=== PATIENT | female | born 1970 | race Asian ===

== ENCOUNTER 2021-09-14 07:30 | Outpatient (RCR) | payer OTHER, SELFPAY | END 2022-05-13 15:58 | disposition home or self-care (01) | PROVIDERS: PCP Obstetrics & Gynecology; Visit Provider Orthopaedic Surgery Sports Medicine | DX: M25.532 Pain in left wrist (principal); Z51.89 Encounter for other specified aftercare | CPT/HCPCS: 97110; 97140; X5282 ==

== ENCOUNTER 2021-10-29 06:23 | Outpatient (CLI) | payer OTHER, SELFPAY ==
[2021-10-29 06:47] VITALS: BP 123/69; PULSE 78; RESP 16; TEMP 36.7; O2SAT 100; BMI 21.9
[2021-10-29 07:39] VITALS: BP 99/62; PULSE 73; RESP 16; O2SAT 100
[2021-10-29 07:50] VITALS: BP 97/65; PULSE 74; RESP 16; O2SAT 100
--- NOTE | 2021-10-29 07:56 | W.ANESCHARGE ---
Anesthesia Charges Start Date/Time Anesthesia Start Date: 10/29/21 Anesthesia Start Time: 07:23 Stop Date/Time Anesthesia Stop Date: 10/29/21 Anesthesia Stop Time: 07:45 Summary Emergency: No
[2021-10-29 07:59] LABS: Basophils Percent Auto 0.3 % (0.0-3.0); Eosinophils Percent Auto 2.8 % (0.0-7.0); Hematocrit 34.2 % (33.0-51.0); Hemoglobin* 10.6 gm/dL (12.0-16.0); Immature Granulocytes Abs Auto 0.01 K/uL (0.00-0.30); Lymphocytes Percent Auto 41.1 % (20-44); Mean Corpuscular HGB Conc 31 gm/dL (32-36); Mean Corpuscular Hemoglobin 23 pg (26-34); Mean Corpuscular Volume 75 fL (80-100); Monocytes Percent Auto 7.8 % (0.0-11.0); Neutrophils Percent Auto 47.7 % (42.0-72.0); Platelet Count* 192 K/uL (140-440); RDW Coefficient of Variation % 14.4 % (11.5-15.5); Red Blood Count 4.56 m/uL (4.00-5.20); Reticulocyte Hemoglobin Equivi 22.9 pg (29.0-35.0); Reticulocyte Percent 0.9 % (0.5-2.0); Reticulocytes Absolute 0.04 # (0.03-0.08); White Blood Count* 3.19 K/uL (4.50-11.00)
[2021-10-29 08:00] VITALS: BP 100/66; PULSE 99; RESP 16; O2SAT 100
--- NOTE | 2021-10-29 08:09 | W.ANESCHARGE ---
Anesthesia Charges Start Date/Time Anesthesia Start Date: 10/29/21 Anesthesia Start Time: 07:23 Stop Date/Time Anesthesia Stop Date: 10/29/21 Anesthesia Stop Time: 07:45 Summary Emergency: No
[2021-10-29 08:11] LABS: Slide Review Reflex No
[2021-10-29 08:15] VITALS: BP 105/71; PULSE 77; RESP 16; O2SAT 100
== END 2021-10-29 08:20 | disposition home or self-care (01) ==
PROVIDERS: PCP Family Medicine; Visit Provider Internal Medicine Hematology & Oncology
DX: D70.9 Neutropenia, unspecified (principal); D64.9 Anemia, unspecified
CPT/HCPCS: 01112; 36415; 38222; 85025; 85045; 88184; 88185; 88237; 88264; 88305; 88311; 88313; 88341; 88342; 88360; J1644; J2001; J2704

== ENCOUNTER 2021-11-17 14:22 | Outpatient (CLI) | payer OTHER, SELFPAY ==
--- NOTE | 2021-11-17 15:00 | CRLHL7_ITS ---
For Patients: As a result of the Century Cures Act, medical imaging exams and procedure reports are released immediately into your electronic medical record. You may view this report before your referring provider. If you have questions, please contact your health care provider. INDICATION: Cytopenia COMPARISON: none TECHNIQUE: Real time nath scale imaging and color Doppler analysis was performed of spleen. FINDINGS: The spleen is normal in size and morphology with normal vascularity and measures 6.7 x 2.5 x 2.0 cm. No surrounding fluid. IMPRESSION: No splenomegaly. Dictated by Alex Vuong MD @ 11/18/2021 10:02:14 AM (Electronically Signed)
== END 2021-11-17 14:23 | disposition home or self-care (01) ==
LOC: US 14:24
PROVIDERS: PCP Obstetrics & Gynecology; Visit Provider Internal Medicine Hematology & Oncology
DX: D75.9 Disease of blood and blood-forming organs, unspecified (principal)
CPT/HCPCS: 76705

== ENCOUNTER 2021-12-07 16:10 | Outpatient (CLI) | payer OTHER, SELFPAY ==
--- NOTE | 2021-12-07 16:45 | CRLHL7_ITS ---
For Patients: As a result of the Cures Act, medical imaging exams and procedure reports are released immediately into your electronic medical record. You may view this report before your referring provider. If you have questions, please contact your health care provider. BILATERAL SCREENING MAMMOGRAM WITH COMPUTER-AIDED DETECTION AND TOMOSYNTHESIS TECHNIQUE: CC and MLO views were obtained. These mammographic images have been obtained using full-field digital technique. These mammographic images were interpreted with the benefit of computer-aided detection. Breast Tomosynthesis was used in this interpretation. COMPARISON FILM: 11/15/19, 12/01/16, 06/23/14. FINDINGS: The breasts are heterogeneously dense, which may obscure small masses IMPRESSION: There is no radiographic evidence for malignancy. ASSESSMENT: BI-RADS Category 1: Negative RECOMMENDATION: Routine screening mammogram in 1 year. A lay language report of this examination will be provided to the patient. Alex Vuong M.D. Diagnostic Radiologist [email or web address] BRIANA/tyrese / be/Dictated by: Alex Vuong MD @ 12/08/2021 10:57:00 AM (Electronically Signed)
== END 2021-12-07 16:11 | disposition home or self-care (01) ==
LOC: MAMMO 16:10
PROVIDERS: PCP Obstetrics & Gynecology; Visit Provider Internal Medicine Nephrology
DX: Z12.31 Encounter for screening mammogram for malignant neoplasm of breast (principal); R92.2 Inconclusive mammogram
CPT/HCPCS: 77063; 77067

== ENCOUNTER 2021-12-09 12:05 | Outpatient (CLI) | payer OTHER, SELFPAY | END 2021-12-09 12:06 | disposition home or self-care (01) | LOC: OP CLINIC 12:06 | PROVIDERS: PCP Obstetrics & Gynecology; Visit Provider Surgery | DX: Z12.11 Encounter for screening for malignant neoplasm of colon (principal); K63.5 Polyp of colon | CPT/HCPCS: 45385; 88305; 99153; J1200; J2250; J3010 ==

== ENCOUNTER 2022-02-16 08:15 | Outpatient (RCR) | payer OTHER, SELFPAY ==
[2021-10-08 15:20] LABS: Iron* 90 ug/dL (37-170)
[2021-10-08 15:29] LABS: Percent Iron Saturation 23 % (20-50); Total Iron Binding Capacity 385 ug/dL (265-497)
[2021-10-11 18:56] LABS: Folate, Serum > 22.3 ng/mL (>=5.9)
[2021-11-16 09:43] LABS: Albumin* 4.7 g/dL (3.3-5.0); Chloride* 101 mmol/L (96-114)
[2021-11-16 09:44] LABS: Potassium* 4.2 mmol/L (3.6-5.1); Sodium* 138 mmol/L (135-149)
[2021-11-16 09:46] LABS: Alanine Aminotransferase* 19 U/L (4-35); Alkaline Phosphatase* 58 U/L (40-150); Aspartate Amino Transferase* 24 U/L (12-35); Bilirubin Total* 0.6 mg/dL (0.1-1.5); Blood Urea Nitrogen* 23 mg/dL (7-30); Carbon Dioxide* 29 mmol/L (20-32); Creatinine* 0.8 mg/dL (0.5-1.5); Estimated Glomerular Filt Rate 90 ml/min; Glucose* 85 mg/dL (60-115); Total Protein* 7.8 g/dL (6.0-8.3)
[2021-11-16 09:47] LABS: Calcium* 9.3 mg/dL (8.4-10.6)
[2021-11-16 11:13] LABS: Thyroid Stimulating Hormone* 0.087 uIU/mL (0.270-4.20)
[2021-11-18 15:06] LABS: Erythropoietin 14 mU/mL (4-27)
[2021-11-19 02:36] LABS: Albumin 4.17 g/dL (3.75-5.01); Alpha 1 Globulin 0.23 g/dL (0.19-0.46); Alpha 2 Globulin 0.64 g/dL (0.48-1.05); Total Protein, Serum 7.1 g/dL (6.3-8.2)
[2021-11-19 05:08] LABS: Anti-Nuclear Ab(ANA)IgG ELISA None Detected (None Detected)
[2022-02-09 08:35] LABS: Basophils Percent Auto 0.6 % (0.0-3.0); Eosinophils Percent Auto 3.3 % (0.0-7.0); Hematocrit 37.9 % (33.0-51.0); Hemoglobin* 11.9 gm/dL (12.0-16.0); Lymphocytes Percent Auto 40.2 % (20-44); Mean Corpuscular HGB Conc 31 gm/dL (32-36); Mean Corpuscular Hemoglobin 23 pg (26-34); Mean Corpuscular Volume 75 fL (80-100); Monocytes Percent Auto 9.7 % (0.0-11.0); Neutrophils Percent Auto 46.2 % (42.0-72.0); Platelet Count* 215 K/uL (140-440); RDW Coefficient of Variation % 15.5 % (11.5-15.5); Red Blood Count 5.09 m/uL (4.00-5.20); White Blood Count* 3.61 K/uL (4.50-11.00)
[2022-02-09 08:43] LABS: Slide Review Reflex No
[2022-02-09 09:45] LABS: Ferritin* 77.3 ng/mL (11.1-264.0)
[2022-02-09 10:21] LABS: Vitamin B12* > 1000 pg/mL (243-894)
== END 2022-04-06 23:59 | disposition home or self-care (01) ==
LOC: CCIC 08:15
PROVIDERS: PCP Obstetrics & Gynecology; Referring Provider Obstetrics & Gynecology; Visit Provider Internal Medicine Hematology & Oncology
DX: D64.9 Anemia, unspecified (principal); D72.819 Decreased white blood cell count, unspecified
CPT/HCPCS: 36415; 80053; 82607; 82668; 82728; 82746; 83540; 83550; 84165; 84443; 85025; 86039; 87635; 99212; 99213; 99214

== ENCOUNTER 2022-09-02 09:30 | Outpatient (RCR) | payer OTHER, SELFPAY ==
[2022-08-31 14:11] LABS: Basophils Percent Auto 0.3 % (0.0-3.0); Eosinophils Percent Auto 5.8 % (0.0-7.0); Hematocrit 37.9 % (33.0-51.0); Hemoglobin* 11.8 gm/dL (12.0-16.0); Lymphocytes Percent Auto 41.1 % (20-44); Mean Corpuscular HGB Conc 31 gm/dL (32-36); Mean Corpuscular Hemoglobin 23 pg (26-34); Mean Corpuscular Volume 74 fL (80-100); Monocytes Percent Auto 6.9 % (0.0-11.0); Neutrophils Percent Auto 45.9 % (42.0-72.0); Platelet Count* 218 K/uL (140-440); Red Blood Count 5.12 m/uL (4.00-5.20)
[2022-08-31 14:12] LABS: Slide Review Reflex No
[2022-08-31 14:44] LABS: Iron* 72 ug/dL (37-170)
[2022-08-31 15:12] LABS: Percent Iron Saturation 20 % (20-50); Total Iron Binding Capacity 360 ug/dL (265-497)
[2022-08-31 15:47] LABS: Vitamin B12* > 1000 pg/mL (243-894)
[2022-09-02 12:55] LABS: Folate, Serum >22.3 ng/mL (>=5.9)
== END 2023-02-27 23:59 | disposition home or self-care (01) ==
LOC: CCIC 09:30
PROVIDERS: PCP Obstetrics & Gynecology; Referring Provider Obstetrics & Gynecology; Visit Provider Internal Medicine Hematology & Oncology
DX: D64.9 Anemia, unspecified (principal); D72.819 Decreased white blood cell count, unspecified; R79.89 Other specified abnormal findings of blood chemistry
CPT/HCPCS: 36415; 82607; 82728; 82746; 83540; 83550; 85025; 99212; 99213; 99214

== ENCOUNTER 2023-02-10 09:08 | Outpatient (CLI) | payer OTHER, SELFPAY | END 2023-02-10 09:09 | disposition home or self-care (01) | PROVIDERS: PCP Obstetrics & Gynecology; Visit Provider Obstetrics & Gynecology | DX: Z01.419 Encounter for gynecological examination (general) (routine) without abnormal findings (principal); E01.0 Iodine-deficiency related diffuse (endemic) goiter; Z13.6 Encounter for screening for cardiovascular disorders | CPT/HCPCS: 80061; 84443 ==

== ENCOUNTER 2023-12-22 14:14 | Outpatient (CLI) | payer OTHER, SELFPAY ==
--- NOTE | 2023-12-22 13:40 | CRLHL7_ITS ---
For Patients: As a result of the Century Cures Act, medical imaging exams and procedure reports are released immediately into your electronic medical record. You may view this report before your referring provider. If you have questions, please contact your health care provider. BILATERAL SCREENING MAMMOGRAM WITH COMPUTER-AIDED DETECTION AND TOMOSYNTHESIS TECHNIQUE: CC and MLO views were obtained. These mammographic images have been obtained using full-field digital technique. These mammographic images were interpreted with the benefit of computer-aided detection. Breast Tomosynthesis was used in this interpretation. COMPARISON FILM: 12/07/21, 11/15/19, 12/01/16. FINDINGS: The breasts are heterogeneously dense, which may obscure small masses. IMPRESSION: There is no radiographic evidence for malignancy. ASSESSMENT: BI-RADS Category 1: Negative RECOMMENDATION: Routine screening mammogram in 1 year. A lay language report of this examination will be provided to the patient. Alex Vuong M.D. Diagnostic Radiologist [email or web address] SP/Dictated by: Alex Vuong MD @ 12/25/2023 8:51:00 AM (Electronically Signed)
--- OUTSIDE RECORDS SUMMARY | 2023-12-22 14:17 | XMS_ITS | Clinical Summary ---
Author Organization [employer] [facility] Address [place], [place] [address] Care Team Providers Care Recycling Tech Name Role Phone Pcp, No Primary Care Provider Unavailabl e Allergies Active Allergy Reactions Criticality Noted Date Comments Homeopathic Products 08/14/2008 Medications Medication Sig Dispensed Refills Start Date End Date Status ZYRTEC 10 MG TABIndications:Allergic rhinitis, cause unspecified take 1 tablet (10 mg) by oral route once daily 30 1year 10/17/2006 Active MULTI-VITAMIN TAB take 1 tablet by oral route once daily with food 0 08/14/2008 Active Active Problems Problem Noted Date Diagnosed Date 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 Allergic rhinitis, cause unspecified 09/26/2006 Immunizations Name Administration Dates Next Due AMB Influenza, IIV3 (Age >=3 years)(Flu Clinic Only) 12/18/2007 HepA-HepB (Twinrix) 01/02/2003,08/01/2002,2001 Influenza, IIV3 (Age >=3 years) 11/10/2008,01/04 MMR 10/16/2003 Td (Age >=7 Years) 10/16/2003 Family History * Patient is adopted Medical History Relation Name Comments Other Other adopted Relation Name Status Comments Other Social History Tobacco Use Types Packs/Day Years Used Date Smoking Tobacco: Never Smokeless Tobacco: Never Alcohol Use Standard Drinks/Week Comments No 0 (1 standard drink = 0.6 oz pur e alcohol) Sex and Gender Information Value Date Recorded Sex Assigned at Not on file Gender Identity Not on file Sexual Orientation Not on file Obstetrics History Last Filed Vital Signs Vital Sign Reading Time Taken Comments Blood Pressure 90/60 06/28/2011 1:26 PM CDT Pulse 68 06/28/2011 1:26 PM CDT Temperature - - Respiratory Rate 18 06/28/2011 1:26 PM CDT Oxygen Saturation - - Inhaled Oxygen Concentration - - Weight 51.5 kg (113 lb 9.6 oz) 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 Height 155.6 cm (5' 1.25) 08/14/2008 11:48 AM C DT Body Mass Index 21.29 08/14/2008 11:48 AM CDT Plan of Treatment Health Maintenance Due Date Last Done Comments Tdap 10/28/1982 Depression screening for age 12+ 1983 HIV for age 15-65 10/28/1986 BMI (ht and wt on same day) for age 18+ 10/28/1989 Hepatitis C screening for age 18-79 10/28/1989 Tetanus booster 10/15/2013 10/16/2003 Colonoscopy through age 75 10/28/2016 Lipids for age 45-75 10/28/2016 Mammogram for age 45-75 10/28/2016 Zoster (shingles) series for age 50+ (1 of 2) 10/28/2021 Pap test for age 21-65 11/28/2022 0, 11/29/2019, 06/28/2013, Additional history exists COVID-19 vaccine series (2023- season) 2023 Influenza for age 50-64 2023 11/11/19 09, 12/18/2007, 01/04/2007 Pneumococcal series for age 6-64 Aged Out No longer eligible based on patient's age to complete this topic Procedures Procedure Name Priority Date/Time Associated Diagnosis Comments 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 Case: [id number] ? Authorizing Provider: ??Eileen Yates ??Collected: ? 11/29/2019 1020 ? M, MD ? Ordering Location: ? [facility] ?Received: ?12/02/2019 1725 ? First Screen: ?Keena Rojo ? Specimen: ?POST TRONIC MACHINE OPERATOR ThinPrep Vial Screening, Cervical/Vaginal ? 12/11/2019 11:54 AM [facility] INTERPRETATION/ RESULT NEGATIVE FOR INTRAEPITHELIAL LESION OR MALIGNANCY (NIL) (none) 12/11/2019 11:54 AM [facility] ENTRMA LABORAT[facility] IMEN ADEQUACY Satisfactory for evaluation Endocervical cells cannot be evaluated due to severe atrophy 12/11/2019 11:54 AM CDT [facility] ENTRAL LAB[facility]ATORY HPV REQUEST HPV and PAP 12/11/2019 11:54 AM CDT [facility] Last Pap Date 06/28/2013 12/11/2019 11:54 AM CDT [facility]-C ENTRAL LABORATORY Last Pap Result NIL 0 11:54 AM T [facility] Menstrual Status Postmenopausal 12/11/2019 11:54 AM CDT [facility] Additional Information 12/11/2019 11:54 AM CDT [facility] Comment: Interpreted at [facility] - [address] [place] [address], [place] [address] Automated Review Successful 12/11/2019 11:54 AM T [facility] Comment:Specimen processed s uccessfully by automated carton waxing machine operator device, ThinPrep Imaging System, [employer] ANCILLARY TESTING POST TRONIC MACHINE OPERATOR HPV Ordered, Please see separate report 12/11/2019 11:54 AM CDT [facility] Note The pap test is a screening technique, not a diagnostic procedure. It is used primarily to screen for squamous cancers and precursor lesions. Published studies have shown that it is subject to both false negative and false positive results. The pap test should not be used as the sole means to diagnose or exclude pre-malignant and malignant lesions. 12/11/2019 11:54 AM T [facility] Other (Cervical/Vagina l) 11/29/2019 10:20 AM CDT 12/02/2019 5:25 PM CDT Eileen Yates MD [facility]OLOG[facility]/ [facility] [address] [place] [address], [place] from Last 3 Months or Most Recently Relevant to Health Maintenance Care Teams Recycling Tech Relationship Specialty Start Date End Date Pcp, No . PCP - General 02/02/18
== END 2023-12-22 14:15 | disposition home or self-care (01) ==
LOC: MAMMO 14:15
PROVIDERS: PCP Obstetrics & Gynecology; Visit Provider Obstetrics & Gynecology
DX: Z12.31 Encounter for screening mammogram for malignant neoplasm of breast (principal); R92.333 Mammographic heterogeneous density, bilateral breasts
CPT/HCPCS: 77063; 77067

== ENCOUNTER 2024-02-15 09:14 | Outpatient (CLI) | payer OTHER, SELFPAY ==
--- NOTE | 2024-03-06 09:47 | ONC.NURNOTE ---
Dr. White reviewed refill request for vitron c, vitamin b12, and folic acid. Dr. White does not want to refill at this time due to pt cancelling last appt and patient hasn't been seen in our clinic since August of 2022. Public Safety Director left message with pt with this information, instructing her to call to make a follow up appt.
== END 2024-02-15 09:15 | disposition home or self-care (01) ==
PROVIDERS: Visit Provider Obstetrics & Gynecology
DX: D64.9 Anemia, unspecified (principal); Z13.220 Encounter for screening for lipoid disorders; L40.9 Psoriasis, unspecified; Z13.89 Encounter for screening for other disorder; R79.89 Other specified abnormal findings of blood chemistry; Z79.899 Other long term (current) drug therapy; R82.90 Unspecified abnormal findings in urine
CPT/HCPCS: 80053; 80061; 82306; 82607; 84443; 84446; 84597; 87086

== ENCOUNTER 2025-02-21 08:53 | Outpatient (CLI) | payer OTHER, SELFPAY ==
[2025-02-22 21:29] LABS: HPV Source Cervix
[2025-02-25 09:35] LABS: Pap Test Digital Imaging Done
== END 2025-02-21 08:54 | disposition home or self-care (01) ==
PROVIDERS: Visit Provider Obstetrics & Gynecology
DX: Z00.00 Encounter for general adult medical examination without abnormal findings (principal); Z12.4 Encounter for screening for malignant neoplasm of cervix; Z13.6 Encounter for screening for cardiovascular disorders
CPT/HCPCS: 80053; 80061; 84439; 84443; 87624; 87625; 88141; 88142; 88175